=== PATIENT | male | born 1985 | race Hispanic/Latino ===

== ENCOUNTER 2019-02-14 14:17 | Emergency (ER) | payer SELFPAY ==
[2019-02-14] MEDS ORDERED: ASPIRIN 325 MG TABLET ONE (14:33)
[2019-02-14 14:46] LABS: BASOPHILS % (AUTO) 0.4 % (0.0-5.0); EOSINOPHILS % (AUTO) 0.1 % (0.0-8.0); HEMATOCRIT 45.9 % (42-54); LYMPHOCYTES % (AUTO) 14.5 % (21.0-51.0); MEAN CORPUSCULAR HEMOGLOBIN 30.7 pg (27.0-33.0); MEAN CORPUSCULAR HGB CONC 35.1 g/dL (32.0-36.0); MEAN CORPUSCULAR VOLUME 87.4 fL (79-99); MONOCYTES % (AUTO) 4.1 % (3.0-13.0); NEUTROPHILS % (AUTO) 80.9 % (40.0-77.0); PLATELET COUNT (AUTO) 291 K/uL (130-400); RED BLOOD CELL COUNT(AUTO) 5.26 MIL/uL (4.50-6.20); RED CELL DISTRIBUTION WIDTH 12.6 % (11.0-15.5); WHITE BLOOD COUNT (AUTO) 11.4 K/uL (4.8-10.8)
[2019-02-14 14:50] LABS: AMPHET/METH SCREEN,URINE NEGATIVE (NEGATIVE); BARBITURATE SCREEN, URINE NEGATIVE (NEGATIVE); BENZODIAZEPINES SCREEN,URINE NEGATIVE (NEGATIVE); CANNABINOID SCREEN,URINE POSITIVE (NEGATIVE); COCAINE SCREEN,URINE POSITIVE (NEGATIVE); OPIATE SCREEN,URINE NEGATIVE (NEGATIVE); PHENCYCLIDINE SCREEN,URINE NEGATIVE (NEGATIVE)
[2019-02-14 14:54] LABS: CREATININE 1.1 mg/dL (0.5-1.5); POTASSIUM 3.9 mmol/L (3.5-5.1)
[2019-02-14 14:58] LABS: ALBUMIN 4.3 g/dL (3.5-5.0); BILIRUBIN,TOTAL 0.5 mg/dL (0.2-1.0); TOTAL PROTEIN, SERUM 8.3 g/dL (6.0-8.3)
[2019-02-14 15:07] LABS: CREATINE KINASE, TOTAL 83 U/L (21-232); MYOGLOBIN 27 ng/mL (10-92); TROPONIN I < 0.04 ng/mL (0.00-0.06)
== END 2019-02-14 16:26 | disposition home or self-care (01) ==
LOC: EDH 14:17
DX: F12.10 Cannabis abuse, uncomplicated (principal); F14.10 Cocaine abuse, uncomplicated; R07.89 Other chest pain; R06.00 Dyspnea, unspecified; Z72.0 Tobacco use
CPT/HCPCS: 36415; 71045; 80053; 80305; 82550; 83874; 84484; 85025; 93005